=== PATIENT | male | born 1990 | race Caucasian/White ===

== ENCOUNTER 2016-10-01 10:01 | Emergency (ER) | payer SELFPAY ==
--- NOTE | 2016-10-01 11:00 | EDM.PDOC ---
ED HPI GENERAL MEDICAL PROBLEM - General Chief Complaint: Behavioral/Psych Stated Complaint: DEPRESSION Time Seen by Provider: 10/01/16 10:35 Source of Information: Reports: Patient History Limitations: Reports: No limitations - History of Present Illness INITIAL COMMENTS - FREE TEXT/NARRATIVE: HISTORY AND PHYSICAL: History of present illness: [Patient comes to the emergency room requesting evaluation for depression and decreased mood. Patient follows with regularly with a addictions counselor at [facility]. 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 He had one brief relapse in February and has been clean since. He presents with his fiance complaining of increased tearfulness, decreased motivation, anhedonia, decreased appetite. he's had some increased anger but has not had any violent episodes. States that he feels nervous all the time. Symptoms have been present and gradually worsening over the past 3 weeks or so. He has never been on any antidepressant medications. Denies any suicidal thoughts. States he would like relief from the symptoms he is feeling and has no desire to end his life or hurt himself. Denies homicidal thoughts, and desire for violence. Denies delusions of grandeur, manic episodes , or feeling high. Has not spent in usual amount of money, stayed awake for several nights in a row due to high energy levels. Edwardo agrees with the patient's self assessment Does not currently have medical insurance and is unable to afford the cost of the office visit with a local medical professional.] Review of systems: As per history of present illness and below otherwise all systems reviewed and negative. Past medical history: As per history of present illness and as reviewed below otherwise noncontributory. Surgical history: As per history of present illness and as reviewed below otherwise noncontributory. Social history: History of heroin and methamphetamine use. Clean x6 months. Does not smoke cigarettes. Family history: As per history of present illness and as reviewed below otherwise noncontributory. Physical exam: HEENT: Atraumatic, normocephalic. negative for conjunctival pallor or scleral icterus. mucous membranes moist. Neck supple. No thyromegaly. Lungs: Clear to auscultation, breath sounds equal bilaterally. Heart: S1S2, regular rate rhythm. Abdomen: Soft, nondistended, nontender. Normoactive bowel sounds throughout. Genitourinary: Deferred. Rectal: Deferred. Extremities: Atraumatic, ambulatory without difficulty or assistance. Neurovascular unremarkable. Neuro: Awake, alert, oriented. Motor and sensory unremarkable throughout. Exam nonfocal. Psych: Patient is well groomed and makes good eye contact with examiner. he is alert and oriented. Affect is somewhat flat, is tearful through conversation. Thought are congruent and logical. Makes Conversation and answers questions appropriately. Impression: [ depression] Plan: [[facility] is contacted. Because patient is already a part of their clinic due to his addiction services, patient can be seen at 3 PM tomorrow. He will have an appt with Dr. Alan to discuss his symptoms and interventions at that time. Patient is in agreement with today's plan. He agrees to this appointment time. Discussed with him that if he has any thoughts of self-harm, suicide or homicide he should return to the emergency room immediately for reevaluation. He is in agreement with this plan. All of his questions are answered and concerns are addressed.] Definitive disposition and diagnosis as appropriate pending reevaluation and review of above. - Related Data Allergies Allergy/AdvReac Type Severity Reaction Status Date / Time No Known Allergies Allergy Verified 10/01/16 10:20 Home Meds: Home Meds . [No Known Home Meds] 10/01/16 [History] Past Medical History Psychiatric History: Reports: Addiction, Depression - Past Surgical History HEENT Surgical History: Reports: Oral surgery Musculoskeletal Surgical History: Reports: Other (see below) Other Musculoskeletal Surgeries/Procedures:: right ankle surgery with metal plate Social & Family History - Family History Family Medical History: Noncontributory - Tobacco Use Smoking Status *Q: Former Smoker Years of Tobacco use: 3 Packs/Tins Daily: 2 Used Tobacco, but Quit: Yes Month Tobacco Last Used: February Second Hand Smoke Exposure: No - Recreational Drug Use Recreational Drug Use: Yes Drug Use in Last 12 Months: Yes Recreational Drug Type: Reports: Marijuana/Hashish, Methamphetamine Recreational Drug Use Frequency: Not Used In Over 6 Months ED ROS GENERAL - Review of Systems Review Of Systems: ROS reveals no pertinent complaints other than HPI. ED EXAM, BEHAVIORAL HEALTH - Physical Exam Exam: See Below COURSE, BEHAVIORAL HEALTH COMP - Course Vital Signs: Last Vital Signs Temp 98.0 F 10/01/16 10:20 Pulse 71 10/01/16 11:25 Resp 14 10/01/16 11:25 BP 126/74 10/01/16 11:25 Pulse Ox 95 10/01/16 11:25 Departure - Departure Time of Disposition: 11:00 Disposition: Home, Self-Care 01 Condition: good Clinical Impression: Depressive disorder - Discharge Information Instructions: Medical Screening Exam Referrals: PCP,None [Primary Care Provider] - Forms: ED Department Discharge Additional Instructions: The following information is given to patients seen in the emergency department who are being discharged to home. This information is to outline your options for follow-up care. We provide all patients seen in our emergency department with a follow-up referral. The need for follow-up, as well as the timing and circumstances, are variable depending upon the specifics of your emergency department visit. If you don't have a primary care physician on staff, we will provide you with a referral. We always advise you to contact your personal physician following an emergency department visit to inform them of the circumstance of the visit and for follow-up with them and/or the need for any referrals to a consulting specialist. The emergency department will also refer you to a specialist when appropriate. This referral assures that you have the opportunity for follow-up care with a specialist. All of these measure are taken in an effort to provide you with optimal care, which includes your follow-up. Under all circumstances we always encourage you to contact your private physician who remains a resource for coordinating your care. When calling for follow-up care, please make the office aware that this follow-up is from your recent emergency room visit. If for any reason you are refused follow-up, please contact the [facility] emergency department at and asked to speak to the emergency department charge nurse. [facility] [address] [place] [address] You're scheduled for an appointment with Dr. Alan at 3 PM tomorrow afternoon at the clinic listed above. It is imperative that you keep this appointment. In the meantime, practice self-care as discussed. Return to the ER as needed as discussed.
[2016-10-01 11:26] VITALS: BP 126/74
== END 2016-10-01 11:25 | disposition home or self-care (01) ==
LOC: MW.ED 10:01
DX: F32.9 Major depressive disorder, single episode, unspecified (principal); Z98.890 Other specified postprocedural states; Z87.891 Personal history of nicotine dependence
CPT/HCPCS: 99282; 99283

== ENCOUNTER 2018-02-10 11:44 | Emergency (ER) | payer OTHER ==
--- NOTE | 2018-02-10 12:10 | EDM.PDOC ---
ED HPI GENERAL MEDICAL PROBLEM - General Chief Complaint: General Stated Complaint: MEDICAL CLEARANCE Time Seen by Provider: 02/10/18 12:07 Source of Information: Reports: Patient - History of Present Illness INITIAL COMMENTS - FREE TEXT/NARRATIVE: HISTORY AND PHYSICAL: History of present illness: Patient presents for medical screening exam His arrested by the drug task force, he has been in custody for about 45 minutes he has no specific complaint no injury or trauma, he reports a peaceful arrest. He has no/denies current pain and fever nausea vomiting diarrhea constipation chest pain shortness breath headache dizziness palpitation no bowel or urine symptoms denies any recent injury or trauma Is a frequent drug user he states he uses methamphetamine regular basis History of depression on fluoxetine 40 mg daily Review of systems: As per history of present illness and below otherwise all systems reviewed and negative. Past medical history: As per history of present illness and as reviewed below otherwise noncontributory. Surgical history: As per history of present illness and as reviewed below otherwise noncontributory. Social history: No reported history of drug or alcohol abuse. Family history: As per history of present illness and as reviewed below otherwise noncontributory. Physical exam: HEENT: Atraumatic, normocephalic, pupils reactive, negative for conjunctival pallor or scleral icterus, mucous membranes moist, throat clear, neck supple, nontender, trachea midline. Scabbed lesions on his chin and cheeks consistent with methamphetamine use no redness warmth or tenderness no exudates for culture Lungs: Clear to auscultation, breath sounds equal bilaterally, chest nontender. Heart: S1S2, regular, negative for clicks, rubs, or JVD. Abdomen: Soft, nondistended, nontender. Negative for masses or hepatosplenomegaly. Negative for costovertebral tenderness. Pelvis: Stable nontender. Genitourinary: Deferred. Rectal: Deferred. Extremities: Atraumatic, negative for cords or calf pain. Neurovascular unremarkable. Neuro: Awake, alert, oriented. Cranial nerves II through XII unremarkable. Cerebellum unremarkable. Motor and sensory unremarkable throughout. Exam nonfocal. Diagnostics: [Clinical ] Therapeutics: [Fluoxetine 40 mg daily #30 no refill ] Impression: [Medical screening exam ] Definitive disposition and diagnosis as appropriate pending reevaluation and review of above. - Related Data Allergies Allergy/AdvReac Type Severity Reaction Status Date / Time No Known Allergies Allergy Verified 02/10/18 11:59 Home Meds: Home Meds . [No Known Home Meds] 10/01/16 [History] Past Medical History Psychiatric History: Reports: Addiction, Depression - Past Surgical History HEENT Surgical History: Reports: Oral Surgery Musculoskeletal Surgical History: Reports: Other (See Below) Social & Family History - Family History Family Medical History: Noncontributory ED ROS GENERAL - Review of Systems Review Of Systems: See Below ED EXAM, GENERAL - Physical Exam Exam: See Below Departure - Departure Time of Disposition: 12:10 Disposition: Home, Self-Care 01 Condition: Good Clinical Impression: Encounter for medical screening examination - Discharge Information Referrals: PCP,None [Primary Care Provider] - Additional Instructions: The following information is given to patients seen in the emergency department who are being discharged to home. This information is to outline your options for follow-up care. We provide all patients seen in our emergency department with a follow-up referral. The need for follow-up, as well as the timing and circumstances, are variable depending upon the specifics of your emergency department visit. If you don't have a primary care physician on staff, we will provide you with a referral. We always advise you to contact your personal physician following an emergency department visit to inform them of the circumstance of the visit and for follow-up with them and/or the need for any referrals to a consulting specialist. The emergency department will also refer you to a specialist when appropriate. This referral assures that you have the opportunity for follow-up care with a specialist. All of these measure are taken in an effort to provide you with optimal care, which includes your follow-up. Under all circumstances we always encourage you to contact your private physician who remains a resource for coordinating your care. When calling for follow-up care, please make the office aware that this follow-up is from your recent emergency room visit. If for any reason you are refused follow-up, please contact the [facility] emergency department at and asked to speak to the emergency department charge nurse.
[2018-02-10 12:33] VITALS: BP 147/92
== END 2018-02-10 12:28 ==
LOC: MW.ED 11:44
DX: Z13.9 Encounter for screening, unspecified (principal); F32.9 Major depressive disorder, single episode, unspecified; Z79.899 Other long term (current) drug therapy
CPT/HCPCS: 99283